=== PATIENT | male | born 1980 | race Caucasian/White ===

== ENCOUNTER → 2016-11-19 | Outpatient (CLI) | payer OTHER ==
[~2016-11-19] VITALS: Ht 182.9 cm; Wt 108.9 kg
== END | disposition home or self-care (01) ==
LOC: Rad HDHVI 09:21
PROVIDERS: ATTEND Internal Medicine Cardiovascular Disease
DX: R55 Syncope and collapse (principal)
CPT/HCPCS: 93017

== ENCOUNTER → 2016-11-21 | Outpatient (CLI) | payer OTHER | END | disposition home or self-care (01) | LOC: Rad HDHVI 13:08 | PROVIDERS: ATTEND Internal Medicine Cardiovascular Disease | DX: R55 Syncope and collapse (principal) | CPT/HCPCS: 93306 ==